=== PATIENT | male | born 2000 | race Caucasian/White ===

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

== ENCOUNTER 2018-12-18 01:10 | Emergency (ER) | payer OTHER ==
[~2018-12-18] VITALS: Ht 195.6 cm; Wt 70.0 kg
[2018-12-18 01:17] VITALS: Ht 195.6 cm; Wt 70.0 kg
[2018-12-18] MEDS ORDERED: STERIODS (01:17)
[2018-12-18] MEDS ORDERED: IBUPROFEN800 MG PO (01:20)
[2018-12-18 03:16] VITALS: BP 110/68
== END 2018-12-18 03:17 | disposition home or self-care (01) ==
LOC: D.ER 01:10
DX: M54.2 Cervicalgia (principal); R55 Syncope and collapse

== ENCOUNTER 2021-01-14 05:11 | Emergency (ER) | payer OTHER ==
[~2021-01-14] VITALS: Ht 195.6 cm; Wt 90.0 kg
[~2021-01-14 05:11] MED LIST changes: +IBUPROFEN800 MG PO; +STERIODS
[2021-01-14 05:28] VITALS: Ht 195.6 cm; Wt 90.0 kg
[2021-01-14 06:32] LABS: CALC OSMOLALITY 269 mosm/kg (275-300); CALCIUM 9.5 mg/dL (8.5-10.1); CARBON DIOXIDE 29.6 mmol/L (21.0-32.0); CHLORIDE - SERUM 101 mmol/L (98-107); CREATININE - SERUM 1.1 mg/dL (0.6-1.3); GLUCOSE 100 mg/dL (74-106); POTASSIUM - SERUM 3.8 mmol/L (3.5-5.1); SODIUM 135 mmol/L (136-145); UREA NITROGEN 12 mg/dL (7-18); eGFR NON AFRICAN AMERICAN 89 mL/min (90-120)
[2021-01-14 06:42] LABS: BILIRUBIN NEGATIVE (NEGATIVE); KETONE NEGATIVE (NEGATIVE); NITRITE NEGATIVE (NEGATIVE); UROBILINOGEN NORMAL mg/dL (< 2)
[2021-01-14 06:49] LABS: ALBUMIN 4.3 g/dL (3.4-5.0); ALKALINE PHOSPHATASE 52 U/L (30-120); ALT (SGPT) 32 U/L (10-68); AMYLASE - SERUM 41 U/L (25-115); LIPASE 98 U/L (73-393); PROTEIN - SERUM 7.6 g/dL (6.4-8.2); TROPONIN-I < 0.017 ng/mL (0.000-0.060)
[2021-01-14 07:08] VITALS: BP 106/72
[2021-01-14 07:12] LABS: BASOPHILS 1.2 % (0-2); EOSINOPHILS 2.2 % (0-7); HEMATOCRIT 49.4 % (42.0-54.0); HEMOGLOBIN 16.9 g/dL (13.5-17.5); LYMPHOCYTES 22.6 % (15-50); MCH 29.7 pg (26.0-34.0); MCHC 34.3 g/dL (31.0-37.0); MCV 86.7 fL (80.0-100.0); PLATELET COUNT 234 10x3/uL (130-400); RBC 5.69 10x6/uL (4.20-6.10); RDW 12.6 % (11.5-14.5); WBC 6.1 10x3/uL (4.8-10.8)
== END 2021-01-14 07:09 | disposition home or self-care (01) ==
LOC: D.ER 05:11
PROVIDERS: Family Medicine
DX: R10.33 Periumbilical pain (principal); R39.11 Hesitancy of micturition